=== PATIENT | male | born 1940 | race Caucasian/White ===

== ENCOUNTER 2017-03-15 19:40 | Observation (INO) | payer MEDICARE ==
--- NOTE | ~2017-03-15 | CN ---
Consultation Report [facility] [address] [place]. [address] NAME: ELIZABETH WALL : 40 STATUS : ADM Kylee PAT#: [id number] AGE: 77 ADM/REG DATE : 03/15/17 MR#: [id number] REPORT SERV DATE: 03/16/17 DICTATED BY: KANWAL HINES DATE: 03/16/17 REPORT STATUS : Draft TRANSCRIBED BY: MODRanjeet DATE: 03/16/17 CARDIOLOGY CONSULT DATE OF CONSULTATION: REFERRING REASON: Atrial fibrillation of unknown duration, now with rapid ventricular response and left-sided chest pain. HISTORY OF PRESENT ILLNESS: This is a pleasant 77-year-old galicia without previously documented cardiac problems, who has seen few days ago his PCP for urinary retention and suprapubic pain. He was also complaining while in the office that he has on and off left- sided poorly defined chest pain, but no palpitation or shortness of breath. Electrocardiogram was obtained, and he was found to be in atrial fibrillation. He was started on Eliquis and Cardizem. The patient denied any palpitations. He was also found to have elevated fasting glucose and elevated PSA. The patient is on Hospitalist Service at [facility]. He denies any chest pain now or palpitations. He underwent nuclear cardiac stress test earlier today, which was negative for ischemia. Echocardiogram is pending. He still has rapid ventricular response up to 120 despite the Cardizem p.o. He has been ambulating without any difficulties, he is active. No other symptoms. His previous electrocardiogram was done many years ago. REVIEW OF SYSTEMS: The rest of the review of systems is negative. PAST MEDICAL HISTORY: 1. Hypertension and hyperlipidemia. 2. Newly diagnosed atrial fibrillation of unknown duration, currently asymptomatic. 3. Elevated fasting glucose, likely diabetes mellitus. 4. Elevated PSA with recent urinary retention. ALLERGIES: NO KNOWN DRUG ALLERGIES. SOCIAL HISTORY: The patient is a . [place], still pretty active without any limitations. He quit smoking in 1950, smoked for a few years. Denies drinking alcohol or using street drugs. FAMILY HISTORY: Negative for sudden cardiac deaths or premature coronary artery in the family. HOME MEDICATIONS: Eliquis 5 mg twice a day, Cardizem CD 120 mg once a day, Zocor 40 mg once a day, and Bactrim. PHYSICAL EXAMINATION: GENERAL: No acute distress. Consultation Report [facility] [address] [place]. [address] NAME: ELIZABETH WALL : 40 STATUS : ADM Kylee PAT#: [id number] AGE: 77 ADM/REG DATE : 03/15/17 MR#: [id number] REPORT SERV DATE: 03/16/17 DICTATED BY: KANWAL HINES DATE: 03/16/17 REPORT STATUS : Draft TRANSCRIBED BY: CAITLIN DATE: 03/16/17 VITAL SIGNS: Blood pressure 111/78, heart rate 115 and irregularly irregular. HEENT: Pupils reactive to light and accommodation. Moist mucosa membrane. NECK: No JVD. Normal carotid upstroke. No carotid bruits. LUNGS: Decreased breath sounds, but no crackles. COR: Normal S1, S2. No S3 or S4. No significant rub or murmurs. ABDOMEN: Obese, distended, nontender. EXT: No edema. Pedal pulses strong and equal bilaterally. SKIN: Warm with normal turgor. MS - No kyphosis. NEURO/PSY - Alert and oriented. Nonfocal. LABORATORY DATA: Hemoglobin 13.4, platelet count 120,000, INR is 1.8, troponin x2 negative. Creatinine 1.5, BUN 20. elevated up to 34. B-natriuretic peptide 210. Chest x-ray: No acute pathology. Electrocardiogram revealed atrial fibrillation, 102 beats per minute with nonspecific ST- segment changes. ASSESSMENT/PLAN: 1. Left-sided atypical chest pain with negative cardiac workup, now negative nuclear cardiac stress test. 2. Atrial fibrillation with rapid ventricular response of unknown duration, currently asymptomatic. 3. Elevated PSA, urinary retention. the patient has been already treated with anticoagulation Eliquis last few days with also Cardizem. While he still has rapid ventricular response, we will proceed with SHEMAR-guided cardioversion later today. Risks and benefits explained to the patient, he agreed to proceed. His cardiac stress test was negative for ischemia. He is currently chest pain free. Thank you for the consult. ROYAL/CAITLIN Kanwal Hines M.D. / [id number] CC: Jacky Sandoval Jr, MD BALDWIN, MAX RUSSELL
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
--- NOTE | ~2017-03-15 | DS ---
Discharge Summary [facility] [address] [place]. [address] NAME: ELIZABETH WALL : 40 STATUS : DIS Kylee PAT#: [id number] AGE: 77 ADM/REG DATE : 03/15/17 MR#: [id number] REPORT SERV DATE: 03/18/17 DICTATED BY: JR. SANDOVAL WILLIAM JOHN DATE: 03/17/17 REPORT STATUS : Draft TRANSCRIBED BY: CAITLIN DATE: 03/17/17 ADMISSION DATE: 03/15/2017 DISCHARGE DATE: 03/17/2017 DISCHARGE DIAGNOSES: 1. Chest pain with negative stress test. 2. New onset atrial fibrillation status post cardioversion. 3. Acute kidney injury with bladder outlet obstruction. 4. Benign prostatic hypertrophy with elevated prostate specific antigen. 5. Hyperglycemia with a hemoglobin A1c of 6.2. OPERATIONS, PROCEDURES, AND TREATMENTS: 1. Chest x-ray done on 03/15/2017 which was without infiltrate or other remarkable finding. 2. Renal ultrasound done on 03/16/2017 which showed mild bilateral Caliectasia, the patient could not void at the time of the exam, bladder was otherwise normal in appearance. There was benign left renal cyst. 3. Echocardiogram done on 03/16/2017 with Definity contrast was a technically difficult study. There was normal left ventricular systolic function with an ejection fraction of 50% to 55% with normal right ventricular chamber size and systolic function. No evidence of significant valvular stenosis or regurgitation. 4. Transesophageal echocardiogram with cardioversion done on 03/17/2017 with reversion to sinus rhythm. 5. Myocardial perfusion scan done on 03/16/2017 showed no evidence of ischemia with ejection fraction of 52%, considered low risk. DISCHARGE MEDICATIONS: 1. Eliquis 5 mg orally twice a day. 2. Aspirin 81 mg orally daily. 3. Diltiazem 120 mg daily. 4. Finasteride 5 mg orally daily. 5. Zocor 40 mg daily. 6. Flomax 0.4 mg orally daily. HOSPITAL COURSE: The patient was a 77-year-old male with new onset atrial fibrillation presented to the emergency room on 03/15/2017 with complaint of chest pain. The patient said, about three days ago he woke up, said he "did not just feel right." He had shortness of breath with dyspnea on exertion, intermittent chest pain the prior few days. He also developed suprapubic abdominal discomfort which was pressure like, rated 7/10 with slow urine stream. He also had a single episode of vomiting. On initial exam, his temperature is 98.5, heart rate 102, respiratory rate 16, blood pressure 149/84. His cardiovascular exam was irregularly irregular and mildly tachycardic. There was no edema present. Initial laboratory showed BUN of 26, creatinine of 1.5, INR of 1.7. Troponin unremarkable. EKG showed atrial fibrillation with rapid response without acute ST or T-wave change. The patient was admitted to the Clinical Decision Unit for chest pain. He had serial Discharge Summary [place] [id number] [facility] [place]. [address] NAME: ELIZABETH WALL : 40 STATUS : DIS Kylee PAT#: [id number] AGE: 77 ADM/REG DATE : 03/15/17 MR#: [id number] REPORT SERV DATE: 03/18/17 DICTATED BY: JR. SANDOVAL WILLIAM JOHN DATE: 03/17/17 REPORT STATUS : Draft TRANSCRIBED BY: CAITLIN DATE: 03/17/17 cardiac enzymes that were negative, and underwent a nuclear stress test which showed no evidence of ischemia. Regarding his atrial fibrillation he was seen in consultation by Cardiology who reviewed the echocardiogram, which is detailed above, felt the patient was a good candidate for transesophageal echocardiogram and cardioversion. This was successfully performed the morning of 03/17/2017 with reversion to sinus rhythm. The patient will be monitored and likely discharged this afternoon if okay with Cardiology on diltiazem 120 mg daily plus apixaban. Left instruction for case management to review the cost of apixaban with the patient prior to discharge. Regarding the acute kidney injury and bladder outlet obstruction, the patient had a PSA which was elevated at 34.3. He was placed on Flomax and Proscar, and had improved voiding symptoms, although he did continue to have urinary frequency. We discussed the options, the patient chose outpatient followup with Urology in this regard. The patient's acute kidney injury had resolved and at discharge his BUN was 21 and creatinine 1.3. Regarding hyperglycemia, the patient had mild hyperglycemia and hemoglobin A1c was 6.2. We will defer this issue to outpatient. The patient will be discharged home today, 03/17/2017, in good condition. He will follow up with his primary care provider, Dr. Bill Giles, in one week. The patient will also follow up with Urology regarding the benign prostatic hypertrophy with lower urinary symptoms and elevated PSA. In addition, the patient will follow up with Cardiology. DISCHARGE DIET: No concentrated sweets. ACTIVITY: As tolerated. For discharge exam and laboratory, please see daily progress note. This discharge took 32 minutes for patient encounter, coordination care and documentation. WJF/MODL Jacky Sandoval Jr, MD / [id number] CC: Jacky Sandoval Jr, MD Max Russell Baldwin Jr., MD
--- NOTE | ~2017-03-15 | OP ---
Record Of Operation [facility] [address] [place]. [address] NAME: ELIZABETH WALL : 40 STATUS : DIS Kylee PAT#: [id number] AGE: 77 ADM/REG DATE : 03/15/17 MR#: [id number] REPORT SERV DATE: 03/18/17 DICTATED BY: DATE: REPORT STATUS : Draft TRANSCRIBED BY: MODL DATE: 03/17/17 DATE OF PROCEDURE: 03/17/2017 CHIEF COMPLAINT/REASON FOR PROCEDURE: Atrial fibrillation. Written informed consent obtained. Please see chart for documentation. DESCRIPTION OF PROCEDURE: With the assistance of my Anesthesia colleagues, Mr. Wall was sedated for the procedure. IV propofol was given for adequate sedation. The transesophageal echocardiographic probe was easily placed without complications. Following verification of no thrombus present, DC cardioversion was performed, 200 joules x1 with return to sinus rhythm. Saline 2D echocardiographic imagin. The left ventricular systolic function appeared grossly normal with a visually estimated ejection fraction of greater than 50%. 2. The right ventricle appeared normal in size and systolic function. 3. The left atrium was dilated. There was no evidence of left atrial thrombus. 4. The right atrium appeared normal in size. 5. The left atrium and left atrial appendage were interrogated at multiple levels and depths. There was no evidence of left atrial appendage thrombus. Doppler velocities within the left atrial appendage ranged between 30 to 60 cm/sec. 6. The mitral valve appeared to open normally. There was mild color flow and spectral Doppler evidence of mitral valvular regurgitation. There was no evidence of mitral valve stenosis. 7. The tricuspid valve opened normally. There was no evidence of tricuspid stenosis. There was mild color flow evidence of tricuspid regurgitation. 8. The aortic valve was trileaflet and opened normally without evidence of stenosis or significant regurgitation. 9. The pulmonary valve appeared to open normally without evidence of stenosis or regurgitation. 10.There was no evidence of pericardial effusion. 11.There was no evidence of right upper pulmonary vein flow reversal. IMPRESSION: 1. Normal left ventricular systolic function with an ejection fraction greater than 50%. 2. Mild mitral and tricuspid regurgitation. 3. Successful DC cardioversion. [place]/CAITLIN Racheal Galindo M.D. Record Of Operation [address] [address] NAME: ELIZABETH WALL : 40 STATUS : DIS Kylee PAT#: [id number] AGE: 77 ADM/REG DATE : 03/15/17 MR#: [id number] REPORT SERV DATE: 03/18/17 DICTATED BY: DATE: REPORT STATUS : Draft TRANSCRIBED BY: MODL DATE: 03/17/17 / [id number] CC: Jacky Sandoval Jr, MD LEVINE,ADRIÁN DONNELLY II
[2017-03-15 17:30] LABS: BASOPHILS 0.1 %; BASOPHILS ABSOLUTE 0.01 10/3/uL (0.0-0.16); EOSINOPHILS 0 %; HEMOGLOBIN 13.4 g/dL (13.6-17.8); IMMATURE GRANULOCYTES 0.1 %; IMMATURE GRANULOCYTES ABSOLUTE 0.01 10/3/uL (0.0-0.11); LYMPHOCYTES 6.4 %; LYMPHOCYTES ABSOLUTE 0.53 10/3/uL (0.67-4.30); MEAN CORPUSCULAR HEMOGLOB 30.1 pg (26.0-34.0); MEAN PLATELET VOLUME 10.5 fL (9.2-13.0); MONOCYTES 7.8 %; MONOCYTES ABSOLUTE 0.64 10/3/uL (0.21-1.20); NEUTROPHILS 85.6 %; NEUTROPHILS ABSOLUTE 7.06 10/3/uL (2.02-8.40); PLATELET COUNT 120 10/3/uL (150-400); RBC DISTRIBUTION WIDTH 13.5 % (12.0-16.0); RED CELL COUNT 4.45 10/6/uL (4.7-6.1)
[2017-03-15 17:31] LABS: ER CBC TAT 0 Hrs 07 Mins; HEMATOCRIT 39.4 % (40.0-51.0); MANUAL DIFF NO %; MEAN CORPUSCULAR VOLUME 88.5 fL (80-100); WHITE BLOOD CELLS 8.3 10/3/uL (4.5-10.5)
[2017-03-15 17:34] LABS: INTERNATIONAL NORMAL RATI 1.7 UNITS (-); PROTIME (NOT ORD) 19.5 SEC (12.0-14.5)
[2017-03-15 17:35] LABS: PARTIAL THROMBO TIME 51.6 SEC (22.5-37.2)
[2017-03-15 17:45] LABS: CHEST PAIN PROFILE TAT 0 Hrs 21 Mins; CHLORIDE, SERUM 103 MMOL/L (96-112); CREATININE 1.53 MG/DL (0.70-1.30); GFR AFRICAN AMERICAN 50 ML/MIN (>=60); GFR NON AFRICAN AMERICAN 43 ML/MIN (>=60); TROPONIN I <0.02 NG/ML (<0.05)
[2017-03-15 17:46] LABS: BUN (BLOOD UREA NITROGEN) 26 MG/DL (6-23); CO2 (CARBON DIOXIDE) 26 MMOL/L (24-34); GLUCOSE, SERUM 168 MG/DL (60-99); SODIUM, SERUM 136 MMOL/L (135-148)
[~2017-03-15 19:40] MED LIST: BACDS PO; CARD120 PO; ELIQUIS 5 MG TAB5 MG PO; ZOCOR40 PO
[2017-03-16 04:36] LABS: BASOPHILS 0.1 %; BASOPHILS ABSOLUTE 0.01 10/3/uL (0.0-0.16); EOSINOPHILS 0.4 %; EOSINOPHILS ABSOLUTE 0.03 10/3/uL (0.0-0.53); HEMATOCRIT 35.5 % (40.0-51.0); HEMOGLOBIN 12.1 g/dL (13.6-17.8); IMMATURE GRANULOCYTES 0.1 %; IMMATURE GRANULOCYTES ABSOLUTE 0.01 10/3/uL (0.0-0.11); LYMPHOCYTES 8.5 %; LYMPHOCYTES ABSOLUTE 0.57 10/3/uL (0.67-4.30); MEAN CORPUS HGB CONC 34.1 g/dL (32.0-36.0); MEAN CORPUSCULAR HEMOGLOB 30.1 pg (26.0-34.0); MEAN CORPUSCULAR VOLUME 88.3 fL (80-100); MEAN PLATELET VOLUME 10.2 fL (9.2-13.0); MONOCYTES 10.8 %; MONOCYTES ABSOLUTE 0.72 10/3/uL (0.21-1.20); NEUTROPHILS 80.1 %; NEUTROPHILS ABSOLUTE 5.35 10/3/uL (2.02-8.40); PLATELET COUNT 110 10/3/uL (150-400); RBC DISTRIBUTION WIDTH 13.5 % (12.0-16.0); RED CELL COUNT 4.02 10/6/uL (4.7-6.1); WHITE BLOOD CELLS 6.7 10/3/uL (4.5-10.5)
[2017-03-16 04:37] LABS: MANUAL DIFF NO %
[2017-03-16 04:44] LABS: INTERNATIONAL NORMAL RATI 1.8 UNITS (-); PARTIAL THROMBO TIME 48.5 SEC (22.5-37.2); PROTIME (NOT ORD) 20.9 SEC (12.0-14.5)
[2017-03-16 04:58] LABS: CALCIUM, SERUM 8.4 MG/DL (8.5-10.4); CHLORIDE, SERUM 103 MMOL/L (96-112); CO2 (CARBON DIOXIDE) 27 MMOL/L (24-34); CREATININE 1.32 MG/DL (0.70-1.30); FREE T4 1.35 NG/DL (0.76-1.46); GFR AFRICAN AMERICAN 60 ML/MIN (>=60); GFR NON AFRICAN AMERICAN 52 ML/MIN (>=60); GLUCOSE, SERUM 136 MG/DL (60-99); POTASSIUM, SERUM 4.1 MMOL/L (3.5-5.3); SGOT(AST) 15 U/L (5-40); SGPT(ALT) 18 U/L (5-65); SODIUM, SERUM 136 MMOL/L (135-148); TOTAL BILIRUBIN 0.8 MG/DL (0-1.2); TOTAL PROTEIN 6.2 G/DL (6.0-8.5); TROPONIN I <0.02 NG/ML (<0.05)
[2017-03-16 05:01] LABS: ALBUMIN 3.1 G/DL (3.5-5.0); ALKALINE PHOSPHATASE 87 U/L (45-117); BUN (BLOOD UREA NITROGEN) 21 MG/DL (6-23); GLOBULIN 3.1 G/DL (2.5-4.1)
[2017-03-16 05:17] LABS: B NATRIURETIC PEPTIDE (BNP) 210.9 PG/ML (< 100.0)
[2017-03-16 21:51] LABS: GLYCOHEMOGLOBIN (HbA1c) 6.2 % (4.7-6.1)
[2017-03-17 05:11] LABS: BASOPHILS 0.2 %; BASOPHILS ABSOLUTE 0.01 10/3/uL (0.0-0.16); EOSINOPHILS 0.8 %; EOSINOPHILS ABSOLUTE 0.05 10/3/uL (0.0-0.53); HEMATOCRIT 36.9 % (40.0-51.0); HEMOGLOBIN 12.6 g/dL (13.6-17.8); IMMATURE GRANULOCYTES 0.3 %; IMMATURE GRANULOCYTES ABSOLUTE 0.02 10/3/uL (0.0-0.11); LYMPHOCYTES ABSOLUTE 0.84 10/3/uL (0.67-4.30); MEAN CORPUS HGB CONC 34.1 g/dL (32.0-36.0); MEAN CORPUSCULAR HEMOGLOB 29.9 pg (26.0-34.0); MEAN CORPUSCULAR VOLUME 87.6 fL (80-100); MONOCYTES 11.1 %; MONOCYTES ABSOLUTE 0.72 10/3/uL (0.21-1.20); NEUTROPHILS 74.6 %; NEUTROPHILS ABSOLUTE 4.82 10/3/uL (2.02-8.40); PLATELET COUNT 123 10/3/uL (150-400); RBC DISTRIBUTION WIDTH 13.3 % (12.0-16.0); RED CELL COUNT 4.21 10/6/uL (4.7-6.1); WHITE BLOOD CELLS 6.5 10/3/uL (4.5-10.5)
[2017-03-17 05:18] LABS: MANUAL DIFF NO %
[2017-03-17 05:24] LABS: BUN (BLOOD UREA NITROGEN) 21 MG/DL (6-23); CALCIUM, SERUM 8.2 MG/DL (8.5-10.4); CHLORIDE, SERUM 104 MMOL/L (96-112); CO2 (CARBON DIOXIDE) 26 MMOL/L (24-34); CREATININE 1.29 MG/DL (0.70-1.30); GFR AFRICAN AMERICAN 62 ML/MIN (>=60); GFR NON AFRICAN AMERICAN 53 ML/MIN (>=60); GLUCOSE, SERUM 132 MG/DL (60-99); POTASSIUM, SERUM 3.7 MMOL/L (3.5-5.3); SODIUM, SERUM 138 MMOL/L (135-148)
[2017-03-17] MEDS ORDERED: PROSCAR5 PO (10:58)
[2017-03-17] MEDS ORDERED: FLOMAX4 PO (10:59)
[2017-03-17] MEDS ORDERED: LEVAQUIN750 MG PO (15:10)
== END 2017-03-17 16:55 | disposition home or self-care (01) ==
LOC: ER 19:40 → CDU1 21:12
PROVIDERS: Emergency Medicine; Hospitalist; Internal Medicine
DX: R07.9 Chest pain, unspecified (principal); I48.91 Unspecified atrial fibrillation; N17.9 Acute kidney failure, unspecified; R73.9 Hyperglycemia, unspecified; I10 Essential (primary) hypertension; E78.00 Pure hypercholesterolemia, unspecified; R55 Syncope and collapse; K44.9 Diaphragmatic hernia without obstruction or gangrene; Z79.82 Long term (current) use of aspirin; Z79.899 Other long term (current) drug therapy
CPT/HCPCS: 71020; 76775; 78452; 80048; 80053; 82962; 83036; 83735; 83880; 84153; 84439; 84443; 84484; 85025; 85610; 85730; 87077; 87086; 87186; 92960; 93005; 93017; 93312; 93320; 93325; 99285; A9270-GY; A9502; C8929; G0378; J0153; Q9957